=== PATIENT | male | born 1990 | race Caucasian/White ===

== ENCOUNTER 2022-01-09 23:07 | Emergency (ER) | payer OTHER, SELFPAY ==
--- NOTE | ~2022-01-09 | CT_ITS ---
EXAMINATION: CT facial & cervical spine wo DATE: 01/10/2022 00:05 INDICATION: Head injury, facial and neck pain TECHNIQUE: Computed tomography (CT) of the maxillofacial region and cervical spine was performed with out intravenous contrast. The dose-length product (DLP) was 459.44 mGy-cm. Automated exposure control and iterative reconstruction technique were employed. COMPARISON: None FINDINGS: MAXILLOFACIAL CT: There are comminuted and displaced bilateral nasal bone fractures with surrounding soft tissue swelli ng. The nasal septum is fractured. There is an age-indeterminate fracture of the lamina papyracea on the left. There is partial opacification of the ethmoidal air cells. There is a fracture of the front al process of the maxilla with adjacent soft tissue swelling. CERVICAL SPINE CT: Motion artifact slightly limits evaluation. There is no fracture, dislocation, or subluxation. The ve rtebral body heights, alignment, and intervertebral disc spaces are normal. The paravertebral soft ti ssues are unremarkable. IMPRESSION: 1. Comminuted and displaced bilateral nasal bone fractures, nasal septum fracture, age indeterminate lamina papyracea fracture on the left, and frontal process of the maxilla fracture. 2. No acute osseous abnormality of the cervical spine, and evaluation slightly limited by motion. Reviewed, dictated and finalized at location B. DERRICK OPERATOR IMPRESSION: 1. Comminuted and displaced bilateral nasal bone fractures, nasal septum fractu re, age indeterminate lamina papyracea fracture on the left, and frontal proces s of the maxilla fracture. 2. No acute osseous abnormality of the cervical spine, and evaluation slightly limited by motion.
--- NOTE | ~2022-01-09 | XR_ITS ---
EXAMINATION: XR femur RT min 2V INDICATION: Right femur pain TECHNIQUE: Two views of the right femur are obtained on five radiographs. COMPARISON: None available FINDINGS: Bone alignment is normal. There is no fracture. The soft tissues are unremarkable. A radiop aque density seen on two radiographs appears to be external to the patient. IMPRESSION: 1. No acute osseous abnormality. Reviewed, dictated and finalized at location B. ERER ASSEMBLER
--- NOTE | ~2022-01-09 | CT_ITS ---
EXAMINATION: CT brain wo con INDICATION: Head injury COMPARISON: None TECHNIQUE: Standard unenhanced head CT. The dose-length product (DLP) was 605.33 mGy-cm. The mA was a djusted according to patient size. Iterative reconstruction technique was employed. FINDINGS: Motion artifact limits the examination. There is no intracranial hemorrhage, acute infarcti on, or abnormal mass lesion. The ventricles are normal. There is no abnormal mass effect or midline s hift. The mercado-white matter differentiation is normal. The basal cisterns are patent. The orbits are normal. There are comminuted and displaced fractures of the nasal bones. The nasal septum is also fra ctured. There are partial opacification of the ethmoidal air cells. IMPRESSION: 1. No acute intracranial abnormality comments sensitivity limited by motion artifact. Consider repeat CT if there is high clinical suspicion for intracranial abnormality. 2. Comminuted and displaced nasal bone fractures and fracture of the nasal septum. Reviewed, dictated and finalized at location B. ENIR STRE[employer] VENDOR IMPRESSION: 1. No acute intracranial abnormality comments sensitivity limited by motion art ifact. Consider repeat CT if there is high clinical suspicion for intracranial abnormality. 2. Comminuted and displaced nasal bone fractures and fracture of the nasal sept um.
--- NOTE | ~2022-01-09 | CT_ITS ---
EXAMINATION: CT lumbar spine wo con DATE: 01/10/2022 00:05 INDICATION: Low back pain TECHNIQUE: Computed tomography (CT) of the lumbar spine was performed without intravenous contrast. T he dose-length product (DLP) was 1263.49 mGy-cm. Iterative reconstruction was used. COMPARISON: None FINDINGS: There is no fracture, dislocation, or subluxation. The vertebral body heights, alignment, a nd intervertebral disc spaces are normal. The paravertebral soft tissues are unremarkable. IMPRESSION: 1. No acute osseous abnormality. Reviewed, dictated and finalized at location B. R HEEL PIECE SHAPER
[2022-01-09 23:20] VITALS: O2SAT 98
[2022-01-09 23:24] VITALS: BP 135/86; O2SAT 94
[2022-01-09 23:30] VITALS: BP 135/84; PULSE 105; RESP 18; TEMP 36.4; O2SAT 96
[2022-01-09 23:40] VITALS: O2SAT 93
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
[2022-01-10 00:17] VITALS: O2SAT 97
[2022-01-10 00:42] LABS: Appearance Urine Clear (Clear); Bilirubin Urine Negative (Negative); Blood Urine 2+ (Negative); Color Urine Yellow (Yellow); Glucose Urine UA Negative (Negative); Ketones Urine Negative (Negative); Leukocyte Esterase Ur Trace LEU/UL (Negative); Nitrate Urine Negative (Negative); Protein Urine Negative (Negative); Specific Grav Ur <= 1.005 (1.001-1.035); Urobilinogen Urine 0.2 mg/dL (<2.0)
[2022-01-10 00:45] LABS: Basophils Percent Auto 0.2 % (0.2-1.2); Hematocrit 39.2 % (42.0-52.0); Hemoglobin 13.4 g/dL (14.0-18.0); Immature Granulocyte Absolute 0.06 K/mm3 (0.00-0.031); Immature Granulocyte Percent A 0.4 % (0-0.5); Lymphocytes Absolute Auto 1.61 K/mm3 (0.9-3.2); Lymphocytes Percent Auto 10.7 % (18.3-44.2); Mean Corpuscular HGB Conc 34.2 g/dl (32-36); Mean Corpuscular Hemoglobin 28.8 pg (26-34); Mean Corpuscular Volume 84.3 fl (80-100); Mean Platelet Volume 8.6 fl (7.4-10.4); Monocytes Absolute Auto 0.8 K/mm3 (0.1-0.6); Monocytes Percent Auto 5.2 % (2.6-8.5); Neutrophils Absolute Auto 12.6 K/mm3 (1.3-6.7); Neutrophils Percent Auto 83.5 % (45.5-73.1); Platelet Count Result 298 k/mm3 (150-375); RBC Urine 0-2 /hpf (0-2); Red Blood Count 4.65 M/mm3 (4.6-6.20); Red Cell Distribution Width 13.2 % (11.5-14.5); WBC Urine 0-3 /hpf; White Blood Count 15.1 K/mm3 (4.5-10.0)
[2022-01-10 00:51] LABS: Ethanol 249 mg/dL (<10)
[2022-01-10 00:54] LABS: Add Urine Microscopic? YES; Alanine Aminotransferase 34 U/L (6-50); Albumin Level 4.7 g/dL (3.5-5.1); Alkaline Phosphatase 70 U/L (38-126); Anion Gap 16 mmol/L (8-16); Aspartate Amino Transferase 48 U/L (17-59); Bilirubin,Total 0.4 mg/dL (0.2-1.3); Blood Urea Nitrogen 22 mg/dL (9-20); Calcium 8.1 mg/dL (8.4-10.2); Carbon Dioxide 20 mmol/L (22-30); Chloride 107 mmol/L (98-107); Estimated Glomerular Filt Rate > 60; Glucose 115 mg/dL (65-110); Potassium 3.7 mmol/L (3.4-5.0); Sodium 143 mmol/L (137-145)
[2022-01-10 00:56] LABS: INR 1.1; Prothrombin Time 13.4 Seconds (11.1-14.7)
[2022-01-10 00:57] LABS: Amphetamine Screen Urine Negative (Negative); Barbiturate Screen Urine Negative (Negative); Benzodiazepines Screen Urine Negative (Negative); Cannabinoid Screen Urine Negative (Negative); Cocaine Screen Urine Negative (Negative); Methadone Screen Urine Negative (Negative); Opiate Screen Urine Negative (Negative); Partial Thromboplastin Time 26.4 SECONDS (22.3-36.8); Phencyclidine Screen Urine Negative (Negative)
[2022-01-10 03:28] VITALS: BP 130/82; PULSE 88; RESP 18; O2SAT 98
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
== END 2022-01-10 05:58 | disposition home or self-care (01) ==
PROVIDERS: Physician Assistant; Emergency Provider Emergency Medicine
DX: S02.2XXA Fracture of nasal bones, initial encounter for closed fracture (principal); Y04.0XXA Assault by unarmed brawl or fight, initial encounter
CPT/HCPCS: 36415; 70450; 70486; 72125; 72131; 73552; 80053; 80307; 81001; 85025; 85610; 85730; 99284